=== PATIENT | female | born 1945 | race African-American/Black ===

== ENCOUNTER 2016-06-22 07:52 | Observation (INO) | payer MEDICARE, OTHER ==
[2016-06-22] VITALS (7 sets, daily range): BP systolic 141–181; BP diastolic 68–94; PULSE 73–95; RESP 16–20; TEMP 96.9–98.4; O2SAT 94–100
[~2016-06-22 07:52] MED LIST: POLYSOL6 EACH EYE; Z.0.NO CURRENT MEDS
[2016-06-22] MEDS ORDERED: ASPI1TAB69 PO (08:50)
[2016-06-22] MEDS ORDERED: MELO-1 PO (08:50)
[2016-06-22] MEDS ORDERED: TETANUS/DIPHTHERIA TOXOID ADULT 0.5 ML VIAL IM ONE (09:00)
--- NOTE | 2016-06-22 09:12 | RADRPT ---
EXAM DATE/TIME: 06/22/2016 09:09 [facility] COMPARISON: No previous studies available for comparison. INDICATIONS: Trauma. MEDICAL HISTORY: None. SURGICAL HISTORY: None. ENCOUNTER: Initial ACUITY: 1 day PAIN SCORE: 10/10 LOCATION: Left wrist. FINDINGS: Three view left wrist demonstrates there is a markedly comminuted fracture of the distal radius. The fracture extends to the radioscaphoid articulation where the bone is distracted by 5 mm. There is a n ulnar styloid fracture and possible ulnar variance. There is a prominent dorsal fragment of the di stal radius measuring 2.4 cm in length. Fracture is slightly angled anteriorly. There is marked osteoarthritis involving the first carpometacarpal joint. CONCLUSION: Markedly comminuted fracture of the distal radius with distraction displacement as above. Avtar Castillo MD on June 22, 2016 at 9:07 Board Certified Radiologist. This report was verified electronically.
[2016-06-22] MEDS ORDERED: AMPICILLIN-SULBACTAM INJ 3 GM in SODIUM CHLORIDE 0.9% INJ 100 ML IV ONE (09:15)
[2016-06-22] MEDS ORDERED: SODIUM CHLORIDE 0.9% FLUSH 5 ML FLUSH IVF PRN ×2 (09:15→18:45)
[2016-06-22] MEDS ORDERED: ONDANSETRON HCL 4 MG/2 ML VIAL IVP ONE (09:15)
[2016-06-22] MEDS ORDERED: MORPHINE SULFATE 4 MG/ML INJ IV PUSH ONE (09:15)
--- NOTE | 2016-06-22 09:23 | PD ---
HPI Chief Complaint: Injury Time Seen by Provider: 09:19 Travel History International Travel<30 days: No Contact w/Intl Traveler<30days: No Traveled to known affect area: No History of Present Illness HPI 71-year-old Afro-Slovak female presents the emergency department status post being attacked by a pit bull and pushed over onto her left side. Patient had received a bite to the right thorax just below the bra line on the right anterior lateral thorax. Patient fell on her outstretched hand on the left with pain and swelling to the left wrist. Patient was brought in by EMS with a splint attached to the left wrist. Patient denies head injury or neck pain. She denies any other pain or injury. Patient denies any chronic illness, or anticoagulant other than 81 mg aspirin daily. The only other medications takes his meloxicam for arthritis. She is not diabetic. She is a smoker of a pack a day. She has no known drug allergies. Patient last ate at 7 AM this morning. PFSH Past Medical History Arthritis: Yes Diminished Hearing: No Tetanus Vaccination: Unknown Influenza Vaccination: Yes ?: Not Past Surgical History Hysterectomy: Yes (PARTAIL) Other Surgery: Yes (L LUMPECTOMY ) Social History Alcohol Use: Yes (occ) Tobacco Use: Yes (/2 ppd) Substance Use: No Allergies-Medications (Allergen,Severity, Reaction): Coded Allergies: No Known Allergies (Verified , 07/04/11) Reported Meds & Prescriptions Reported Meds & Active Scripts Active Reported Meloxicam 15 Mg Tab 15 Mg PO DAILY Aspirin 81 Mg Tabdr 81 Mg PO DAILY Review of Systems Except as stated in HPI: all other systems reviewed are Neg General / Constitutional: No: Fever Eyes: No: Visual changes HENT: No: Headaches Cardiovascular: No: Chest Pain or Discomfort Respiratory: No: Shortness of Breath Gastrointestinal: No: Abdominal Pain Genitourinary: No: Dysuria Musculoskeletal: Positive: Arthralgias, Limited ROM, Pain Skin: No Rash Neurologic: No: Weakness Psychiatric: No: Depression Endocrine: No: Polydipsia Hematologic/Lymphatic: No: Easy Bruising Physical Exam Narrative GENERAL: Patient appears in mild distress. SKIN: Warm and dry. Normal color. Normal turgor. Patient has facial abrasion- type bite miguel to the right lateral thorax just below the bra line. There is minimal bleeding in this area. HEAD: Atraumatic. Normocephalic. Nontender. EYES: Pupils equal and round. No scleral icterus. No injection or drainage. ENT: No nasal bleeding or discharge. Mucous membranes pink and moist. Pharynx is clear. No dental injury. Patent. NECK: Trachea midline. Nontender without step-off. CARDIOVASCULAR: Regular rate and rhythm. No murmurs gallops or rubs appreciated. RESPIRATORY: No accessory muscle use. Clear to auscultation. Breath sounds equal bilaterally. MUSCULOSKELETAL: Extremities without clubbing, cyanosis, or edema. Patient is obvious deformity to the radial wrist with swelling and ecchymosis present. Patient has normal neurovascular exam distal to the wrist. There is no abrasion or open wound. Strength is reduced secondary to pain. NEUROLOGICAL: Awake and alert. No obvious cranial nerve deficits. Motor grossly within normal limits. Five out of 5 muscle strength in the arms and legs. Normal speech. PSYCHIATRIC: Appropriate mood and affect; insight and judgment normal. Data Data Last Documented VS Vital Signs Date Time Temp Pulse Resp B/P Pulse Ox O2 Delivery O2 Flow Rate FiO2 06/22/16 09:43 76 16 167/86 98 Room Air 06/22/16 07:55 98.4 Orders Wrist, Complete (Cbn3opp) (06/22/16 08:48) Ice/Cold Pack (06/22/16 08:48) Tetanus/Diphtheria Tox Adult (Tetanus/Di (06/22/16 09:00) Wound Care (06/22/16 08:48) Complete Blood Count With Diff (06/22/16 09:15) Comprehensive Metabolic Panel (06/22/16 09:15) Prothrombin Time / Inr (Pt) (06/22/16 09:15) Act Partial Throm Time (Ptt) (06/22/16 09:15) Iv Access Insert/Monitor (06/22/16 09:15) Ecg Monitoring (06/22/16 09:15) Oximetry (06/22/16 09:15) NPO (06/22/16 09:15) Morphine Inj (Morphine Inj) (06/22/16 09:15) Ondansetron Inj (Zofran Inj) (06/22/16 09:15) Ampicillin-Sulbactam Inj (Unasyn Inj) (06/22/16 09:15) Sodium Chloride 0.9% Flush (Ns Flush) (06/22/16 09:15) Electrocardiogram (06/22/16 09:15) Chest, Single Ap (06/22/16 09:15) Labs Laboratory Tests Test 06/22/16 09:40 White Blood Count 7.8 TH/MM3 Red Blood Count 4.22 MIL/MM3 Hemoglobin 14.7 GM/DL Hematocrit 43.5 % Mean Corpuscular Volume 103.0 FL Mean Corpuscular Hemoglobin 34.7 PG Mean Corpuscular Hemoglobin 33.7 % Concent Red Cell Distribution Width 13.8 % Platelet Count 208 TH/MM3 Mean Platelet Volume 8.1 FL Neutrophils (%) (Auto) 66.6 % Lymphocytes (%) (Auto) 24.0 % Monocytes (%) (Auto) 4.8 % Eosinophils (%) (Auto) 4.0 % Basophils (%) (Auto) 0.6 % Neutrophils # (Auto) 5.2 TH/MM3 Lymphocytes # (Auto) 1.9 TH/MM3 Monocytes # (Auto) 0.4 TH/MM3 Eosinophils # (Auto) 0.3 TH/MM3 Basophils # (Auto) 0.0 TH/MM3 CBC Comment DIFF FINAL Differential Comment Prothrombin Time 10.5 SEC Prothromb Time International 1.0 RATIO Ratio Activated Partial 26.4 SEC Thromboplast Time MDM Medical Decision Making Medical Screen Exam Complete: Yes Emergency Medical Condition: Yes Differential Diagnosis Dog bite. Fall. Left radial fracture. Narrative Course Patient is medically stable at time of exam. X-ray of the left wrist is obtained showing significant comminuted fracture to the distal radius. Patient is given a tetanus IM. Dressing is placed over the dog bite on the right lateral thorax. No closure is necessary. Call was placed to Dr. Martin, the orthopedic on-call, and the patient's x-rays are reviewed and patient discussed. Dr. Banda requests patient be admitted to medicine and kept nothing by mouth for probable surgery for open reduction and internal fixation of the left wrist. CBC, CMP, are ordered, an IV access is obtained. Patient is given 4 mg IV morphine, as well as 4 mg Zofran IV. Patient is given 3 g Unasyn IV. Call was placed to the hospitalist for admission at 1000 hrs. 1018 hrs. call returned, and patient admitted awaiting surgery for her left wrist. Diagnosis Primary Impression: Left radial fracture Qualified Code: S52.502A - Displaced fracture of distal end of left radius, initial encounter Admitting Information Admitting Physician Requests: Admit Disposition: 01 DISCHARGE HOME Condition: Stable Herson Mccoy Jun 22, 2016 09:23
--- NOTE | 2016-06-22 09:37 | RADRPT ---
EXAM DATE/TIME: 06/22/2016 09:29 [facility] COMPARISON: No previous studies available for comparison. INDICATIONS : Cough. MEDICAL HISTORY : Carcinoma, breast. SURGICAL HISTORY : Lumpectomy, left. ENCOUNTER: Initial ACUITY: 4 - 6 days PAIN SCORE: 0/10 LOCATION: Bilateral chest FINDINGS: A single view of the chest demonstrates the lungs to be symmetrically aerated without evidence of mas s, infiltrate or effusion. The cardiomediastinal contours are unremarkable with a tortuous aorta. O sseous structures are intact. CONCLUSION: Normal examination. Avtar Castillo MD on June 22, 2016 at 9:36 Board Certified Radiologist. This report was verified electronically.
[2016-06-22 10:05] LABS: AUTOMATED NEUTROPHIL # 5.2 TH/MM3 (1.8-7.7); BASOPHIL % 0.6 % (0.0-2.0); EOSINOPHIL # 0.3 TH/MM3 (0-0.4); HEMATOCRIT 43.5 % (35.0-46.0); HEMO FLAGS DIFF FINAL; LYMPHOCYTE # 1.9 TH/MM3 (1.0-4.8); MEAN CORPUSCULAR HEMOGLOBIN 34.7 PG (27.0-34.0); MEAN CORPUSCULAR HGB CONC 33.7 % (32.0-36.0); MONO % 4.8 % (0.0-8.0); NEUT % 66.6 % (16.0-70.0); PLATELET COUNT 208 TH/MM3 (150-450); RED BLOOD COUNT 4.22 MIL/MM3 (4.00-5.30); RED CELL DISTRIBUTION WIDTH 13.8 % (11.6-17.2); WHITE BLOOD COUNT 7.8 TH/MM3 (4.0-11.0)
[2016-06-22 10:15] LABS: PROTHROMBIN TIME - PATIENT 10.5 SEC (9.8-11.6)
[2016-06-22 10:16] LABS: APTT (PATIENT) 26.4 SEC (24.3-30.1)
[2016-06-22 11:37] LABS: ANION GAP 8 MEQ/L (5-15); AST (GOT) 22 U/L (15-37); BICARBONATE 27.3 MEQ/L (21.0-32.0); BLOOD UREA NITROGEN 15 MG/DL (7-18); CHLORIDE 105 MEQ/L (98-107); GLOMERULAR FILTRATION RATE 77 ML/MIN (>89); POTASSIUM 4.1 MEQ/L (3.5-5.1); SODIUM (NA) 140 MEQ/L (136-145)
[2016-06-22 11:38] LABS: ALKALINE PHOSPHATASE 72 U/L (45-117); ALT (GPT) 22 U/L (10-53); TOTAL BILIRUBIN ADULT 0.3 MG/DL (0.2-1.0)
[2016-06-22] MEDS ORDERED: PROPOFOL 200 MG/20 ML AMP IV ONE (12:00)
[2016-06-22] MEDS ORDERED: ONDANSETRON HCL 4 MG/2 ML VIAL IV PUSH ONE (12:00)
--- NOTE | 2016-06-22 13:55 | HHI.HP ---
[facility] Unknown Admission Diagnosis Left Distal Radial Fracture/Dog Bite Diagnoses: Chief Complaint: left upper extremity pain Travel History International Travel<30 Days: No Contact w/Intl Traveler <30 Da: No Traveled to Known Affected Are: No History of Present Illness Patient is a very pleasant 71-year-old female Looks younger than stated age who already this morning was walking their dog along the neighborhood when another gentleman was walking his dog and apparently lost control of the leash and the people came and attacked her and bit her on her right flank. Patient fell on her left side and broke her wrist. Stephanie was called and patient was promptly brought in here on evaluation showed a fracture of the left radius and admitted for further management. Review of Systems ROS Limitations: Clinical Condition Constitutional: DENIES: Fever, Weight loss, Chills, Change in appetite Eyes: DENIES: Blurred vision, Double Vision Ears, nose, mouth, throat: DENIES: Tinnitus, Ear Pain, Epistaxis, Odynophagia Respiratory: DENIES: Cough, Hemoptysis, Sputum production, Shortness of breath Cardiovascular: DENIES: Chest pain, Palpitations, Dyspnea on Exertion, Lower Extremity Edema, Orthopnea Gastrointestinal: DENIES: Black stools, Bloody stools, Difficulty Swallowing, Anorexia Genitourinary: DENIES: Urgency, Hematuria, Vaginal discharge Musculoskeletal: DENIES: Joint pain, Stiffness Integumentary: DENIES: Pruritus Hematologic/lymphatic: DENIES: Bruising Immunologic/allergic: DENIES: Urticaria Neurologic: DENIES: Headache, Speech Problems, Tremor Psychiatric: DENIES: Suicidal Ideation, Homicidal Ideation Past Family Social History Past Medical History History of breast cancer diagnosed in 2000 status post left lumpectomy, status post radiation therapy Past Surgical History Left breast mass removal/lumpectomy 2000 Patient gets mammograms every year through PCP at [facility] Reported Medications Aspirin 81 mg daily Mavik 50 mg when necessary Allergies: Coded Allergies: No Known Allergies (Verified , 07/04/11) Family History Family history positive for diabetes mellitus type 2, hypertension Social History Smoker half pack per day Occasional beer Denies any substance abuse Physical Exam Vital Signs Vital Signs Date Time Temp Pulse Resp B/P Pulse Ox O2 Delivery O2 Flow Rate FiO2 06/22/16 13:41 85 16 96 Room Air 06/22/16 11:25 74 17 141/68 96 Room Air 06/22/16 10:40 16 06/22/16 09:43 76 16 167/86 98 Room Air 06/22/16 09:26 100 Room Air 06/22/16 07:55 98.4 95 20 152/80 96 Room Air Physical Exam GENERAL: This is a well-nourished, well-developed patient, in no apparent distress. HEAD: Atraumatic. Normocephalic. No temporal or scalp tenderness. EYES: Pupils equal round and reactive. Extraocular motions intact. No scleral icterus. No injection or drainage. ENT: Nose without bleeding, purulent drainage or septal hematoma. Throat without erythema, tonsillar hypertrophy or exudate. Uvula midline. Airway patent. NECK: Trachea midline. No JVD or lymphadenopathy. Supple, nontender, no meningeal signs. CARDIOVASCULAR: Regular rate and rhythm without murmurs, gallops, or rubs. RESPIRATORY: Clear to auscultation. Breath sounds equal bilaterally. No wheezes , rales, or rhonchi. GASTROINTESTINAL: Abdomen soft, non-tender, nondistended. No hepato-splenomegaly , or palpable masses. No guarding. MUSCULOSKELETAL: Left upper extremity with sling and swathe in place +2 radial pulses moves fingers spontaneously Left flank area with superficial bite landa no active bleeding NEUROLOGICAL: Awake and alert. Cranial nerves II through XII intact. Motor and sensory grossly within normal limits. Left upper extremity limited by sling-and -swathe Laboratory Laboratory Tests Test 06/22/16 06/22/16 09:40 10:43 White Blood Count 7.8 Red Blood Count 4.22 Hemoglobin 14.7 Hematocrit 43.5 Mean Corpuscular Volume 103.0 Mean Corpuscular Hemoglobin 34.7 Mean Corpuscular Hemoglobin 33.7 Concent Red Cell Distribution Width 13.8 Platelet Count 208 Mean Platelet Volume 8.1 Neutrophils (%) (Auto) 66.6 Lymphocytes (%) (Auto) 24.0 Monocytes (%) (Auto) 4.8 Eosinophils (%) (Auto) 4.0 Basophils (%) (Auto) 0.6 Neutrophils # (Auto) 5.2 Lymphocytes # (Auto) 1.9 Monocytes # (Auto) 0.4 Eosinophils # (Auto) 0.3 Basophils # (Auto) 0.0 CBC Comment DIFF FINAL Differential Comment Prothrombin Time 10.5 Prothromb Time International 1.0 Ratio Activated Partial 26.4 Thromboplast Time Sodium Level 140 Potassium Level 4.1 Chloride Level 105 Carbon Dioxide Level 27.3 Anion Gap 8 Blood Urea Nitrogen 15 Creatinine 0.88 Estimat Glomerular Filtration 77 Rate Random Glucose 99 Calcium Level 8.3 Total Bilirubin 0.3 Aspartate Amino Transf 22 (AST/SGOT) Alanine Aminotransferase 22 (ALT/SGPT) Alkaline Phosphatase 72 Total Protein 7.1 Albumin 3.8 Result Diagram: 06/22/1640 06/22/16 1043 Imaging Last Impressions Chest X-Ray 06/22/1615 Signed Impressions: Service Date/Time: June 09:29 - CONCLUSION: Normal examination. Avtar Castillo MD Wrist X-Ray 06/22/16 0848 Signed Impressions: Service Date/Time: June 09:09 - CONCLUSION: Markedly comminuted fracture of the distal radius with distraction displacement as above. Avtar Castillo MD Assessment and Plan Assessment and Plan Patient is a 71-year-old female status post attack by a pit bull per family neighbor, patient completed his shots Status post fall with Left upper extremity radial fracture . Patient got tetanus shot down here in the emergency room Orthopedics taking her to surgery this afternoon PRN PAIN MEDS Dogbite left flank area Bacitracin to area BID Physician Certification 2 Midnight Certification Type: Admission for Inpatient Services Order for Inpatient Services The services are ordered in accordance with Medicare regulations or non- Medicare payer requirements, as applicable. In the case of services not specified as inpatient-only, they are appropriately provided as inpatient services in accordance with the 2-midnight benchmark. Estimated LOS (days): 3 days is the estimated time the patient will need to remain in the hospital, assuming treatment plan goals are met and no additional complications. Post-Hospital Plan: Home Nerissa Torres MD Jun 22, 2016 13:55
[2016-06-22] MEDS ORDERED: oxyCODONE/ACETAMINOPHEN 5 MG/325 MG TAB PO PRN (14:00)
[2016-06-22] MEDS ORDERED: ceFAZolin INJ 1,000 MG VIAL ONE (15:28)
[2016-06-22] MEDS ORDERED: BUPIVACAINE HCL PF 0.25% 30 ML VIAL ONE (15:28)
[2016-06-22] MEDS ORDERED: LIDOCAINE HCL 1% 50 ML VIAL ONE (15:29)
[2016-06-22] MEDS ORDERED: MIDAZOLAM HCL 2 MG/2 ML VIAL ONE (16:48)
[2016-06-22] MEDS ORDERED: VANCOMYCIN HCL 1000 MG VIAL ONE (16:48)
[2016-06-22] MEDS ORDERED: FAMOTIDINE 20 MG/2 ML VIAL ONE (16:48)
[2016-06-22] MEDS ORDERED: ceFAZolin 2 GM PREMIX 50 ML ONE (16:49)
--- NOTE | 2016-06-22 17:52 | MB ---
cc: MAGEN AKERS DATE OF CONSULTATION: 06/22/2016 REASON FOR CONSULTATION: Left wrist fracture. HISTORY The patient is a 71-year-old female who was walking her dog had and she apparently lost control of the dog and then she was attacked, she fell onto her left arm. She noticed immediate deformity about the left wrist. She is not complaining numbness or tingling about the wrist. She has no previous problems with the wrist in the past. immobilization of the wrist reduces pain. She was brought to [facility] found to have a comminuted distal radius fracture. The undersigned was consulted the ER physician contacted me on the phone we reviewed the images together. The patient was admitted to the hospital. MEDICAL HISTORY Positive for breast cancer with lumpectomy, status post radiation therapy surgical history for breast cancer surgery medicines include aspirin ALLERGIES NO KNOWN DRUG ALLERGIES. SOCIAL HISTORY The patient smokes after pack per day. The patient drinks beer. Denies any other SUBSTANCE ABUSE Family history is negative. PHYSICAL EXAMINATION VITAL SIGNS: The patient's temperature is 90.4 pulses 85, respirations 16, blood pressure 141/68. She is awake, alert and oriented x3. HEAD, EYES, EARS, NOSE, AND THROAT: She has normal insight affect and judgment head is atraumatic. Pupils are reactive. Extraocular muscles are intact. Oropharynx is moist. NECK: Neck is supple HEART: Regular rate and rhythm. LUNGS: Clear to auscultation bilaterally. ABDOMEN: The abdomen is soft, nontender, nondistended. EXTREMITIES: The left upper extremity is currently splinted. No bloody drainage is noted. She has normal sensation about the index finger which is coming from the ANDRIA bandage. The right upper extremity has good active range of motion bilateral lower extremities have no tenderness about the bilateral knees and ankles. She has brisk cap refill about the upper and lower extremities. She has normal sensation again noted. LABORATORY FINDINGS: Laboratory studies shows white cell count 7.8, hematocrit 43.5, platelets of 99, creatinine 0.88. X-RAYS Left wrist shows a highly comminuted distal radius fracture intra-articular with significant displacement. IMPRESSION Left wrist comminuted distal radius fracture intra-articular with displacement angulation. DECISION MAKING: We discussed the diagnosis in detail. Note that did review the radiologist interpretation as well which also believe there may be some widening of the scapholunate ligament. We expressed to the patient that nonoperative management for this condition has a high chance of chronic pain of the wrist, loss of function of the wrist, loss range of motion of the wrist and significant disability of the wrist and left upper extremity. We discussed about surgical management for reduction internal fixation which does have some risks including injury to vessels, bleeding, infection failure of this reoperation, continued pain loss range of motion associated joints, DVT, pulmonary embolus, pneumonia, . We talked about the possibly requiring removal of the hardware or bone grafting. She understands the serious nature of this injury. She wants to move forward with surgical management. MD BRANDEN Childs/yuliya /5:11 PM /5:34 PM MTDArgentina
[2016-06-22] MEDS ORDERED: BUPIVACAINE/EPINEPHRINE 0.25% PF 30 ML VIAL ONE (18:08)
[2016-06-22] MEDS ORDERED: MISCELLANEOUS NURSING INFORMATION XX PRN (18:45)
[2016-06-22] MEDS ORDERED: ACETAMINOPHEN/HYDROcodone 325 MG/5 MG TAB PO PRN (18:45)
[2016-06-22] MEDS ORDERED: Post-op Orders (for Pharmacy) MISC XX ONE (18:45)
[2016-06-22] MEDS ORDERED: diphenhydrAMINE HCL 25 MG CAP PO PRN (18:45)
[2016-06-22] MEDS ORDERED: MISCELLANEOUS PHARMACY INFORMATION XX ONE (18:45)
[2016-06-22] MEDS ORDERED: ONDANSETRON HCL 4 MG/2 ML VIAL IVP PRN (18:45)
[2016-06-22] MEDS ORDERED: MORPHINE SULFATE 4 MG/ML INJ IV PUSH PRN (18:45)
[2016-06-22] MEDS ORDERED: MAGNESIUM HYDROXIDE SUSP 30 ML CUP PO PRN (18:45)
[2016-06-22] MEDS ORDERED: NALOXONE HCL 0.4 MG/ML AMP IV PRN (18:45)
--- NOTE | 2016-06-22 18:58 | PD.OP ---
cc: Barrera Martin MD Operative Report Date of Surgery: Jun 22, 2016 Preoperative Diagnosis: Left distal radius fracture, three-part intra-articular comminuted Postoperative Diagnosis: Same Procedure: Left distal radius open reduction and internal fixation of three-part intra- articular comminuted fracture. Left distal radius application of cancellous bone graft. Anesthesia: Gen. Surgeon: Barrera Martin Spot Welder(s): YOMI Otero The surgical procedure was assisted by my Advanced Registered Nurse Practitioner. My LANDSCAPE GARDENER presence was necessary throughout this case for the manipulation and positioning of the surgical extremity. My LANDSCAPE GARDENER was assisting me throughout the duration of this procedure. The skill set of an Advance Registered Nurse Practitioner was medically necessary to complete this procedure. During the surgical case, the pearl technician was working at the back table and the Advance Registered Nurse Practitioner was directly assisting me. Operation and Findings: Tourniquet time: 23 minutes at 250 mmHg of pressure Estimated blood loss: 5 cc The patient received intravenous vancomycin and Ancef. After the appropriate anesthesia was administered, the patient's arm was prepped and draped in the usual sterile fashion. Local anesthetic was given, and the arm was exsanguinated. The tourniquet was raised to 250 mmHg of pressure. We made a standard incision over the volar aspect of the forearm. We then dissected through the flexor carpi radialis sub- sheath. The pronator quadratus was reflected. We now visualized the distal radius fracture very well. The fracture was anatomically reduced both visually and via fluoroscopy. We provisionally held the fracture reduced and then applied a Synthes precontoured distal radius plate into the appropriate position. The plate was secured to the distal radius first with the sliding screw hole. This was then followed by locking screws distally and proximally. We took final fluoroscopic imaging of the wrist. We found no intra-articular penetration of the screws. The patient had full range of motion of the wrist with no crepitus. We did apply cancellus bone graft to a central void within the metaphyseal region. This was approximately 5 cc. The tourniquet was released and hemostasis was achieved. The patient had a 2+ radial pulse. We irrigated the incision thoroughly. We then closed skin with 2 -0 Vicryl followed by 3-0 nylon. The arm was dressed and a volar splint was applied. The postoperative plan is to start delayed range of motion of the wrist. Barrera Martin MD Jun 22, 2016 18:58
--- NOTE | 2016-06-22 19:19 | RADRPT ---
EXAM DATE/TIME: 06/22/2016 18:37 [facility] COMPARISON: No previous studies available for comparison. INDICATIONS : Left wrist pain, fell MEDICAL HISTORY : None. SURGICAL HISTORY : None. ENCOUNTER: Subsequent ACUITY: 1 day PAIN SCORE: Non-responsive. LOCATION: Left Wrist FINDINGS: Side plate and multiple screws traverse the distal radius with excellent anatomical alignment of the fracture fragments. CONCLUSION: Intact postsurgical changes for technique. Vic Menendez MD on June 22, 2016 at 19:17 Board Certified Radiologist. This report was verified electronically.
[2016-06-22] MEDS ORDERED: NORC5TAB PO (19:26)
[2016-06-22] MEDS ORDERED: DEXT 5%-NACL 0.45% 1000 ML INJ 1,000 ML IV SCH (20:00)
[2016-06-22] MEDS ORDERED: DO NOT ADM ANY ANTICOAGULANT DRUGS XX PRN (20:00)
[2016-06-22] MEDS ORDERED: fentaNYL CITRATE 250 MCG/5 ML AMP ONE ×2 (20:31→20:32)
[2016-06-22] MEDS: BACITRACIN TOP OINT 15 GM TUBE TOP SCH (21:00)
[2016-06-22] MEDS: DOCUSATE SODIUM 50 MG/SENNA 8.6 MG TAB PO SCH (22:07)
[2016-06-22] MEDS: SODIUM CHLORIDE 0.9% FLUSH 5 ML FLUSH IVF SCH (22:07)
[2016-06-22] MEDS: ACETAMINOPHEN/HYDROcodone 325 MG/5 MG TAB PO PRN (22:08)
[2016-06-23] VITALS: BP 120/71; PULSE 81; RESP 16; TEMP 97.5; O2SAT 97
[2016-06-23] MEDS ORDERED: DEXT 5%-NACL 0.45% 1000 ML INJ 1,000 ML IV SCH (02:45)
[2016-06-23] MEDS: ACETAMINOPHEN/HYDROcodone 325 MG/5 MG TAB PO PRN (04:59)
[2016-06-23 08:00] VITALS: BP 128/73; PULSE 70; RESP 16; TEMP 96.3; O2SAT 96
[2016-06-23] MEDS ORDERED: MULTIVITAMINS/MINERALS THERAPEUTIC TAB PO SCH (09:00)
[2016-06-23] MEDS: DOCUSATE SODIUM 50 MG/SENNA 8.6 MG TAB PO SCH (09:40)
[2016-06-23] MEDS: BACITRACIN TOP OINT 15 GM TUBE TOP SCH (09:47)
[2016-06-23] MEDS: SODIUM CHLORIDE 0.9% FLUSH 5 ML FLUSH IVF SCH (09:47)
[2016-06-23 09:55] VITALS: O2SAT 96
--- NOTE | 2016-06-23 10:37 | HHI.PR ---
Subjective Remarks pain controlled with prn pain meds Objective Vitals Vital Signs Date Time Temp Pulse Resp B/P Pulse Ox O2 Delivery O2 Flow Rate FiO2 06/23/16 09:55 96 21 06/23/16 08:00 96.3 70 16 128/73 96 06/23/16 00:00 97.5 81 16 120/71 97 06/22/16 22:08 Room Air 06/22/16 21:00 96.9 82 17 181/94 94 06/22/16 19:30 97.8 83 14 175/88 95 Room Air 06/22/16 19:15 88 16 178/88 96 Room Air 06/22/16 19:10 98.3 90 15 173/83 95 Room Air 06/22/16 16:29 87 16 163/86 100 06/22/16 15:08 73 17 163/85 99 Room Air 06/22/16 13:41 85 16 96 Room Air 06/22/16 11:25 74 17 141/68 96 Room Air 06/22/16 10:40 16 I/O 06/22/16 06/22/16 06/22/16 06/23/16 06/23/16 06/23/16 07:00 15:00 23:00 07:00 15:00 23:00 Intake Total 1100 ml 240 ml Output Total 270 ml Balance 830 ml 240 ml Intake Oral 240 ml Other 1100 ml Output Urine Total 250 ml Estimated Blood Loss 20 ml # Voids 1 5 1 # Bowel Movements 0 Result Diagram: 06/22/16 0940 06/22/16 1043 Imaging Last Impressions Chest X-Ray 06/22/16 0915 Signed Impressions: Service Date/Time: June 09:29 - CONCLUSION: Normal examination. Avtar Castillo MD Wrist X-Ray 06/22/16 0848 Signed Impressions: Service Date/Time: June 09:09 - CONCLUSION: Markedly comminuted fracture of the distal radius with distraction displacement as above. Avtar Castillo MD Objective Remarks awake and alert, no distress anicteric lungs clear regular rhythm abdomen soft, nontender Left UE- dressing in place, moves fingers freely, no swelling Procedures 06/22- ORIF left radial fracture A/P Assessment and Plan Patient is a 71-year-old female status post attack by a pit bull per family neighbor, patient completed his shots Status post ORIF left radial fracture Ortho ff Dogbite left flank area- dry Bacitracin to area BID DC if cleared by Ortho service with ff up instructions Diet regular Activity- weightbearing LE, non weightbearing right UE Meds- prn Lortab Outpt ff up with Orthopedics in 1-2 weeks Nerissa Torres MD Jun 23, 2016 10:37
[2016-06-23 12:00] VITALS: BP 141/69; PULSE 77; RESP 17; TEMP 96.5; O2SAT 97
[2016-06-23] MEDS ORDERED: BACI500O2 TOP (15:47)
--- NOTE | 2016-06-23 23:43 | EKG ---
Date Performed: 06/22/2016 Time Performed: 10:16:12 PTAGE: 71 years EKG: Sinus rhythm VOLTAGE CRITERIA FOR LVH ABNORMAL ECG PREVIOUS TRACING : 02/12/2007 08.35 DOCTOR: Ryland Cardenas Interpretating Date/Time 06/23/2016 23:41:16
== END 2016-06-23 17:01 | disposition home or self-care (01) ==
LOC: NEPB 07:52 → NEDA 10:19 → OBSVTOIN 10:45 → INTOOBSV 10:45 → N06A 19:52 → UNDODISIN 06-23 17:01
PROVIDERS: ADMIT Internal Medicine; ATTEND Internal Medicine
DX: S52.572A Other intraarticular fracture of lower end of left radius, initial encounter for closed fracture (principal); S21.93XA Puncture wound without foreign body of unspecified part of thorax, initial encounter; M25.532 Pain in left wrist; M18.9 Osteoarthritis of first carpometacarpal joint, unspecified; F17.210 Nicotine dependence, cigarettes, uncomplicated; W54.0XXA Bitten by dog, initial encounter; W01.198A Fall on same level from slipping, tripping and stumbling with subsequent striking against other object, initial encounter; Y93.K1 Activity, walking an animal; Z92.3 Personal history of irradiation; Z85.3 Personal history of malignant neoplasm of breast; Z01.810 Encounter for preprocedural cardiovascular examination
CPT/HCPCS: 01830; 25609; 71010; 73110; 76000; 80053; 85025; 85610; 85730; 90471; 90714; 93005; 94150; 96365; 96375; 99285; C1713; G0378; J0295; J0690; J2250; J2270; J2405; J3010; J3370